=== PATIENT | female | born 1955 | race Caucasian/White ===

== ENCOUNTER 2024-07-10 15:52 | Observation (INO) | payer MEDICARE, OTHER ==
[~2024-07-10] VITALS: Ht 167.6 cm; Wt 77.1 kg
[2024-07-10] MEDS ORDERED: Midazolam HCL 1 MG/ML 5MLVIAL IM ONE (16:35)
[2024-07-10 17:37] LABS: BASOPHILS ABSOLUTE AUTO 0.03 K/mm3 (0.00-0.23); BASOPHILS PERCENT AUTO 0 % (0-2); EOSINOPHILS ABSOLUTE AUTO 0.02 K/mm3 (0.00-0.68); EOSINOPHILS PERCENT AUTO 0 % (0-6); Hemoglobin 14.8 g/dL (11.5-16.0); IMMATURE GRAN ABSOLUTE AUTO 0.03 K/mm3 (0.00-0.10); IMMATURE GRAN PERCENT AUTO 0 % (0-1); LYMPHOCYTES ABSOLUTE AUTO 0.86 K/mm3 (0.84-5.20); LYMPHOCYTES PERCENT AUTO 8 % (21-46); MONOCYTES ABSOLUTE AUTO 0.52 K/mm3 (0.16-1.47); MONOCYTES PERCENT AUTO 5 % (4-13); Mean Corpuscular HGB 32.7 pg (26.0-34.0); Mean Corpuscular HGB Conc 34.4 g/dL (31.5-36.5); Mean Corpuscular Volume 95 fL (80-100); NEUTROPHILS PERCENT AUTO 87 % (41-73); Platelet Count 292 K/mm3 (150-400); RDW Coefficient Variation 12.1 % (11.7-14.2); RDW Standard Deviation 42.6 fL (35.1-46.3); Red Blood Cell Count 4.52 M/mm3 (3.80-5.20); White Blood Cell Count 11.36 K/mm3 (4.00-11.30)
[2024-07-10 18:12] LABS: Ethanol (Alcohol), Blood, Med <3 mg/dL; Salicylate <1.7 mg/dL (2.8-20.0)
[2024-07-10 18:17] LABS: Alanine Aminotransfer (ALT/SGP 31 U/L (12-78); Albumin, Blood 4.1 g/dL (3.4-5.0); Albumin/Globulin Ratio 1.1 (0.8-1.8); Alk Phos 79 U/L (50-136); Anion Gap 11 mmol/L (3-11); Aspartate Aminotrans (AST/SGOT 39 U/L (12-37); Bilirubin, Total 0.8 mg/dL (0.1-1.0); Blood Urea Nitrogen 26 mg/dL (8-24); CO2, Blood 24 mmol/L (21-32); Calcium, Blood 10.2 mg/dL (8.5-10.1); Chloride, Blood 110 mmol/L (98-108); Creatinine, Blood 1.04 mg/dL (0.40-1.00); Globulin, Blood 3.9 g/dL (2.2-4.0); Glomerular Filtration Rate 57 (60-); Glucose, Blood 112 mg/dL (70-99); Potassium, Blood 4.2 mmol/L (3.5-5.5); Sodium, Blood 141 mmol/L (136-145)
[2024-07-10 18:19] LABS: Acetaminophen, Random <2.0 ug/mL (10.0-30.0)
[2024-07-10] MEDS ORDERED: LORazepam 2 MG/ML 1ML Injection IM ONE (18:20)
[2024-07-10] MEDS ORDERED: DiphenhydrAMINE HCl 50 MG/ML 1ML Vial IM ONE (18:20)
[2024-07-10] MEDS ORDERED: Ketamine HCL 10 MG/ML 20MLVIAL IM ONE (21:55)
[2024-07-10] MEDS ORDERED: Ketamine HCl 100 MG / ML 5ML Vial IM ONE (22:20)
[2024-07-11 11:17] LABS: Source, Urine Clean Catch
[2024-07-11 11:23] LABS: Appearance, Urine Hazy (Clear); Bilirubin, Urine Neg (Neg); Blood, Urine 2+ (Neg); Color, Urine Yellow (P-Yellow); Glucose Qualitative, Urine Neg (Neg); Ketones, Urine 1+ (Neg); Leukocyte Esterase, Urine 1+ (Neg); Nitrite, Urine Neg (Neg); Protein, Urine 2+ (Neg); Specific Gravity, Urine 1.025 (1.003-1.022); Urobilinogen, Urine NORM (Normal)
[2024-07-11 13:00] LABS: Bacteria Few /hpf; Mucus Light (0-Heavy); Squamous Epithelial Cells Few /hpf (Few)
[2024-07-11 13:01] LABS: Hyaline Casts 0-2 /lpf (0-2)
[2024-07-11] MEDS ORDERED: LISINOPRIL-HCT1 EACH PO (13:21)
[2024-07-11] MEDS ORDERED: ZOCOR20 MG PO (13:21)
[2024-07-11] MEDS ORDERED: PARO30 PO (13:21)
[2024-07-11] MEDS ORDERED: MELO7.5 PO (13:22)
[2024-07-11] MEDS ORDERED: VEOZAH45 MG PO (13:24)
[2024-07-11 14:16] LABS: U Amphetamine Screen Not Detected; U Barbituate Screen Not Detected; U Benzodiazapine Screen DETECTED; U Buprenorphine Screen Not Detected; U Cannabinoids Screen DETECTED; U Cocaine Screen Not Detected; U Methadone Screen Not Detected; U Methamphetamine Screen Not Detected; U Opiates Screen Not Detected; U Oxycodone Screen Not Detected; U Phencyclidine Screen Not Detected
[2024-07-11] MEDS ORDERED: Atorvastatin 10 MG Tab PO SCH (14:50)
[2024-07-11] MEDS ORDERED: Meloxicam 7.5 MG Tab PO SCH (14:50)
[2024-07-11] MEDS ORDERED: Lisinopril 20 MG Tab PO ONE (14:55)
[2024-07-11] MEDS ORDERED: HydroCHLOROthiazide 25 mg Tab PO ONE (14:55)
[2024-07-11] MEDS ORDERED: Misc. Tablet PO ONE (16:35)
[2024-07-12] MEDS ORDERED: PARoxetine HCl 20 MG Tab PO SCH (09:00)
[2024-07-12] MEDS ORDERED: FEZOLINETANT 45 MG PO SCH (09:00)
[2024-07-12] MEDS ORDERED: Lisinopril 20 MG Tab PO SCH (09:00)
[2024-07-12] MEDS ORDERED: HydroCHLOROthiazide 25 mg Tab PO SCH (09:00)
[2024-07-12 10:06] VITALS: BP 156/89
[2024-07-12] MEDS ORDERED: Cefdinir 300 MG Cap PO SCH (11:15)
[2024-07-12] MEDS ORDERED: Cefdinir 300 MG Cap PO ONE (16:50)
[2024-07-12] MEDS ORDERED: CEFD300 PO (16:53)
== END 2024-07-12 17:29 | disposition home or self-care (01) ==
LOC: ER 15:52 → EOR 15:53
PROVIDERS: Student in an Organized Health Care Education/Training Program; ADMIT Student in an Organized Health Care Education/Training Program
DX: N39.0 Urinary tract infection, site not specified (principal); F43.21 Adjustment disorder with depressed mood; R45.4 Irritability and anger
CPT/HCPCS: 80053; 80320; 81001; 85025; 87086; 93005; 93010; 96372; 99285-25; A9270; G0378; G0480; J1200; J2060; J2250

== ENCOUNTER → 2024-07-24 | Outpatient (CLI) | payer MEDICARE, OTHER ==
[~2024-07-24] MED LIST: CEFD300 PO; Hair, Skin & N1 EACH; LISINOPRIL-HCT1 EACH PO; MELO7.5 PO; PARO30 PO; VEOZAH45 MG PO; ZOCOR20 MG PO
[2024-07-24 15:26] LABS: Campylobacter Sp Not Detected (NOT DETECT); Plesiomonas Shigelloides Not Detected (NOT DETECT); Salmonella Sp Not Detected (NOT DETECT)
[2024-07-24 15:27] LABS: Adenovirus F 40/41 Not Detected (NOT DETECT); Astrovirus Not Detected (NOT DETECT); Cryptosporidium Not Detected (NOT DETECT); Cyclospora Cayetanensis Not Detected (NOT DETECT); E. Coli O157 Not Detected (NOT DETECT); Entamoeba Histolytica Not Detected (NOT DETECT); Enteroaggregative E. coli-EAEC Not Detected (NOT DETECT); Enteropathogenic E. coli-EPEC Not Detected (NOT DETECT); Enterotoxigenic E. coli-ETEC Not Detected (NOT DETECT); Giardia Lamblia Not Detected (NOT DETECT); Norovirus GI/GII Not Detected (NOT DETECT); Rotavirus A Not Detected (NOT DETECT); Sapovirus Not Detected (NOT DETECT); Shiga Toxin-prod E. coli-STEC Not Detected (NOT DETECT); Shigella/Enteroin E. coli-EIEC Not Detected (NOT DETECT); Vibrio Cholerae Not Detected (NOT DETECT); Vibrio Sp Not Detected (NOT DETECT); Yersinia Enterocolitica Not Detected (NOT DETECT)
== END | disposition home or self-care (01) ==
LOC: LAB 09:40 → LAB SHORT 09:40
PROVIDERS: Nurse Practitioner Family
DX: R19.7 Diarrhea, unspecified (principal)
CPT/HCPCS: 87324; 87507

== ENCOUNTER 2024-08-01 13:28 | Day surgery (SDC) | payer MEDICARE, OTHER ==
[~2024-08-01] VITALS: Ht 167.6 cm; Wt 69.3 kg
[~2024-08-01 13:28] MED LIST changes: +Atropine Sulfate 0.1 MG/ML 10ML SYR ONE; +Glycopyrrolate 0.2 MG/ML 1MLVIAL ONE; -Hair, Skin & N1 EACH; +Lidocaine 2% 5 ML SDV ONE; +Lidocaine HCl/Pf 1% 5 ML VIAL ONE; +Methylene Blue 1% 100 MG/10 ML VIAL ONE; +Ondansetron HCl 2 MG / ML 2ML Vial ONE; +ePHEDrine Sulfate 50 MG/ML 1ML Injection ONE
[2024-08-01] MEDS ORDERED: Hair, Skin & N1 EACH (14:35)
[2024-08-01] MEDS ORDERED: Lactated Ringer's 1,000 ML IV ONE ×2 (15:07→15:28)
[2024-08-01] MEDS ORDERED: propofoL 50 ML IV ONE ×2 (15:28→15:56)
[2024-08-01] MEDS ORDERED: Ondansetron HCl 2 MG / ML 2ML Vial ONE (15:47)
[2024-08-01 16:49] VITALS: BP 130/70
== END 2024-08-01 16:44 | disposition home or self-care (01) ==
LOC: ORSCSDS 13:28
PROVIDERS: Specialist
PROC: 0DBL8ZX Excision of Transverse Colon, Via Natural or Artificial Opening Endoscopic, Diagnostic (ICD-10-PCS; principal; 2024-08-01 15:00)
PROC: 0DBE8ZX Excision of Large Intestine, Via Natural or Artificial Opening Endoscopic, Diagnostic (ICD-10-PCS; principal; 2024-08-01 15:00)
DX: R19.7 Diarrhea, unspecified (principal); D12.3 Benign neoplasm of transverse colon; K64.8 Other hemorrhoids; K57.30 Diverticulosis of large intestine without perforation or abscess without bleeding; R10.84 Generalized abdominal pain; Z83.719 Family history of colon polyps, unspecified; I10 Essential (primary) hypertension; E78.5 Hyperlipidemia, unspecified; J45.909 Unspecified asthma, uncomplicated; Z85.3 Personal history of malignant neoplasm of breast; Z79.899 Other long term (current) drug therapy; Z87.891 Personal history of nicotine dependence
CPT/HCPCS: 88305; J0461; J2003; J2405; J2704; J7120; Q9968